=== PATIENT | male | born 1995 | race Caucasian/White ===

== ENCOUNTER 2018-04-11 20:39 | Emergency (ER) | payer MEDICAID, OTHER ==
[2018-04-11 20:39] VITALS: BMI 22.6
[2018-04-11 20:53] VITALS: BP 112/74; PULSE 64; RESP 14; TEMP 98.1; O2SAT 99
[2018-04-11] MEDS ORDERED: Tetracaine 0.5% Ophth 2 ML BOTTLE OU ONE (20:58)
[2018-04-11] MEDS ORDERED: Fluorescein 1 mg Ophthalmic Strip OD STA (20:58)
[2018-04-11] MEDS ORDERED: Tetracaine 0.5% Ophth (OR ONLY) ONE (21:06)
[2018-04-11] MEDS ORDERED: Fluorescein 1 mg Ophthalmic Strip ONE (21:07)
--- NOTE | 2018-04-11 21:39 | C.PDOC ---
History Of Present Illness 23 year old male presents to the ER with a complaint of left eye pain that began at 1830. Patient states he was at work and while placing the rotisserie chicken into the oven when hot oil splashed into his eye. Pt notes he cleaned it out at the time and put drops in it but pain persists. Denies change in vision. Time Seen by Provider: 04/11/18 20:58 Chief Complaint (Nursing): Eye Problem History Per: Patient History/Exam Limitations: no limitations Onset/Duration Of Symptoms: Hrs Current Symptoms Are (Timing): Still Present Quality: Burning Wears Contact Lens?: No Associated Symptoms: Pain (w/ blinking). denies: Decreased Vision Recent travel outside of the [place]: No Past Medical History Reviewed: Historical Data, Nursing Documentation, Vital Signs Vital Signs: Last Vital Signs Temp 98.1 F 04/11/18 20:50 Pulse 64 04/11/18 20:50 Resp 14 04/11/18 20:50 BP 112/74 04/11/18 20:50 Pulse Ox 99 04/11/18 23:38 Family History: States: Unknown Family Hx - Social History Hx Alcohol Use: Yes Hx Substance Use: No - Immunization History Hx Tetanus Toxoid Vaccination: No Hx Influenza Vaccination: Yes Hx Pneumococcal Vaccination: No Review Of Systems Except As Marked, All Systems Reviewed And Found Negative. Eyes: Positive for: Pain (w/ blinking). Negative for: Vision Change Physical Exam - Physical Exam Appears: Well, Non-toxic, No Acute Distress Skin: Warm, Dry Head: Atraumatic, Normacephalic Eye(s): bilateral: PERRL, EOMI, right: Normal Inspection, left: Other (Mild erythema to upper and lower eyelid near the medial canthus. Mild conjunctival injection to medial aspect.) Nose: Normal Oral Mucosa: Moist Neck: Normal ROM, Supple Chest: Symmetrical Respiratory: No Accessory Muscle Use, Other (speaking in full sentences) Neurological/Psych: Oriented x3, Normal Speech ED Course And Treatment O2 Sat by Pulse Oximetry: 99 (room air) Pulse Ox Interpretation: Normal Progress Note: Fluorescein applied with mild uptake. Patient is resting comfortably in no acute distress, vitals are stable; advised to follow up with ophthalmology tomorrow for further evaluation. Case discussed with Dr. Meyer who agrees with treatment plan and discharge. Disposition - Disposition Referrals: Favian Barnes MD [Staff Provider] - Disposition: HOME/ ROUTINE Disposition Time: 21:38 Condition: STABLE Additional Instructions: Follow up with eye doctor in 1-2 days. Return to ER if symptoms persist or worsen. Prescriptions: Tobramycin 0.3% [Tobramycin 5 Ml] 1 drop OP Q4 #1 bottle Instructions: Corneal Abrasion (DC) Forms: [employer] ([place]an), Work Excuse - Clinical Impression Clinical Impression: Corneal abrasion, Burn of eyelid, left - PA / WORLD TRAVEL COUNSELOR / Resident Statement MD/DO has reviewed & agrees with the documentation as recorded. - Scribe Statement The provider has reviewed the documentation as recorded by the Scribe Ronald Bustamante All medical record entries made by the Scribe were at my direction and personally dictated by me. I have reviewed the chart and agree that the record accurately reflects my personal performance of the history, physical exam, medical decision making, and the department course for this patient. I have also personally directed, reviewed, and agree with the discharge instructions and disposition.
== END 2018-04-11 21:42 | disposition home or self-care (01) ==
LOC: C.ER 20:39
DX: S05.02XA Injury of conjunctiva and corneal abrasion without foreign body, left eye, initial encounter (principal); T26.02XA Burn of left eyelid and periocular area, initial encounter; X10.2XXA Contact with fats and cooking oils, initial encounter; Y93.G3 Activity, cooking and baking; Y92.89 Other specified places as the place of occurrence of the external cause; Y99.0 Civilian activity done for income or pay